=== PATIENT | male | born 1945 | race Caucasian/White ===

== ENCOUNTER 2020-05-28 07:02 | Outpatient (CLI) | payer MEDICARE, OTHER ==
[2020-05-28 12:19] LABS: Anion Gap 15 mmol/L (10-20); BUN (Urea Nitrogen) 24 mg/dL (8.4-25.7); Calc. Creatinine Clearance 0 mL/min (70-130); Calcium 9.6 mg/dL (7.8-10.44); Carbon Dioxide 26 mmol/L (23-31); Chloride 102 mmol/L (98-107); Glucose 104 mg/dL (83-110); Sodium 138 mmol/L (136-145)
[2020-05-28 12:20] LABS: #Eosinphils 0.2 10x3/uL (0.0-0.5); #Monocytes 0.7 10x3/uL (0.0-1.1); #Neutrophils 3.4 10x3/uL (1.5-8.4); %Basophils 0.8 % (0.0-2.0); %Eosinophils 2.9 % (0.0-6.0); %Lymphocytes 17.2 % (18.0-47.0); %Monocytes 13.4 % (0.0-10.0); %Neutrophils 65.1 % (40.0-75.0); Hemoglobin 11.9 g/dL (14.0-18.0); Mean Corpuscular HGB CONC 30.1 G/DL (32.0-36.0); Mean Corpuscular Hemoglobin 25.4 PG (27.0-33.0); Mean Corpuscular Volume 84.2 fl (80.0-100.0); Mean Platelet Volume 11.3 fl (7.4-10.4); Platelet Count 184 10x3/uL (130-400); RBC Distribution Width 22.2 % (11.5-14.5); Red Blood Cell (RBC) Count 4.69 10x6/uL (4.40-5.80); White Blood Cell (WBC) Count 5.2 10x3/uL (4.5-11.0)
[2020-05-28 12:50] LABS: Anisocytosis SLIGHT = 6-15 cells (100X) (0-5/hpf)
[2020-05-28 12:51] LABS: Ovalocytes SLIGHT = 2-5 cells (100X) (0-1/hpf); Platelet Morphology Comment Appears Adequate
[2020-05-28 14:54] LABS: Hemoglobin A1c 5.1 % (4.0-6.0)
[2020-05-28 18:27] LABS: SARS-CoV-2 PCR by NAA Not Detected (NotDetected)
== END 2020-05-28 07:03 | disposition home or self-care (01) ==
LOC: LABBT 07:02
PROVIDERS: ATTEND Specialist
DX: Z01.818 Encounter for other preprocedural examination (principal); Z20.822 Contact with and (suspected) exposure to COVID-19; C18.7 Malignant neoplasm of sigmoid colon; K63.89 Other specified diseases of intestine; R91.8 Other nonspecific abnormal finding of lung field
CPT/HCPCS: 71045; 80048; 83036; 85025; 93005; U0003; U0005; 87635; 93010

== ENCOUNTER 2020-06-02 06:38 | Inpatient (IN) | payer MEDICARE, OTHER ==
[2020-06-02] MEDS ORDERED: Ketorolac Tromethamine 30 MG/ML VIAL ONE (06:54)
[2020-06-02] MEDS ORDERED: cefOXitin Sodium/Dextrose 2 GM/50 ML BAG ONE (06:54)
[2020-06-02] MEDS ORDERED: Acetaminophen 500 MG TAB ONE (06:54)
[2020-06-02] MEDS ORDERED: Fentanyl 100 MCG/2 ML VIAL ONE ×2 (06:54→07:21)
[2020-06-02] MEDS ORDERED: Albuterol Sulfate HFA (OR ONLY) ONE (06:55)
[2020-06-02] MEDS ORDERED: Lidocaine 4% Topical Sol 50 ML BOT ONE (06:55)
[2020-06-02] MEDS ORDERED: Bupivacaine 0.25% HCL 30 ML VIAL ONE (07:00)
[2020-06-02] MEDS ORDERED: EPINEPHrine 1 MG/ML AMP ONE (07:00)
[2020-06-02] MEDS ORDERED: XYLOCAINE 2%-EPI 1:100,000 20 ML VIAL ONE ×2 (07:00→10:18)
[2020-06-02] MEDS ORDERED: Midazolam HCl 2 mg/2 ml Vial ONE (07:21)
[2020-06-02] MEDS ORDERED: Fentanyl 250 MCG/5 ML VIAL ONE (08:59)
[2020-06-02] MEDS ORDERED: Dexamethasone 20 MG/5 ML VIAL ONE (10:47)
[2020-06-02] MEDS ORDERED: ePHEDrine 50 MG/ML VIAL ONE (10:47)
[2020-06-02] MEDS ORDERED: PROPOFOL 200 MG/20 ML VIAL ONE (10:47)
[2020-06-02] MEDS ORDERED: Glycopyrrolate 0.2 MG/ML 5 ML SYRINGE ONE (10:47)
[2020-06-02] MEDS ORDERED: Lidocaine 1% PF 5 ML VIAL ONE (10:47)
[2020-06-02] MEDS ORDERED: Rocuronium Bromide 10 MG/ML (10ML VIAL) ONE (10:47)
[2020-06-02] MEDS ORDERED: Ondansetron PF 4 MG/2 ML Vial ONE (10:47)
[2020-06-02] MEDS ORDERED: Bupivacaine HCl 0.5%/Epinephrine 1:200,000/PF 30 ml Vial ONE (10:47)
[2020-06-02] MEDS ORDERED: ceFOXitin 1 GM VIAL ONE (12:49)
[2020-06-02] MEDS ORDERED: Promethazine HCl 25 MG/ML VIAL IM PRN (16:31)
[2020-06-02] MEDS ORDERED: Morphine 2 MG/ML VIAL SLOW IVP PRN (16:31)
[2020-06-02] MEDS ORDERED: Morphine 4 MG/ML VIAL SLOW IVP PRN (16:31)
[2020-06-02] MEDS ORDERED: hydrALAZINE 20 MG/ML VIAL SLOW IVP PRN (16:31)
[2020-06-02] MEDS ORDERED: Ondansetron PF 4 MG/2 ML Vial IVP PRN (16:31)
[2020-06-02 16:57] VITALS: BMI 29.0
[2020-06-02] MEDS: D5 1/2 NS w/20 mEq KCL 1,000 ML IV SCH ×2 (17:24→23:55)
[2020-06-02] MEDS: Ketorolac Tromethamine 30 MG/ML VIAL IVP SCH ×2 (18:18→23:55)
[2020-06-02] MEDS: Famotidine 20 MG TAB PO SCH (21:03)
[2020-06-02] MEDS: Enoxaparin Sodium 40 MG/0.4 ML SYRINGE SC SCH (21:03)
[2020-06-02] MEDS: Carvedilol 3.125 MG TAB PO SCH (21:03)
[2020-06-02] MEDS: traZODone HCl 50 MG TAB PO SCH (21:03)
[2020-06-02] MEDS: Famotidine/PF 20 mg/2ml Vial SLOW IVP SCH (21:24)
[2020-06-03] MEDS: Ketorolac Tromethamine 30 MG/ML VIAL IVP SCH ×4 (05:15→23:44)
[2020-06-03] MEDS: D5 1/2 NS w/20 mEq KCL 1,000 ML IV SCH ×4 (06:40→23:47)
[2020-06-03 07:25] LABS: Anion Gap 10 mmol/L (10-20); BUN (Urea Nitrogen) 26 mg/dL (8.4-25.7); Calc. Creatinine Clearance 61 mL/min (70-130); Calcium 7.3 mg/dL (7.8-10.44); Carbon Dioxide 23 mmol/L (23-31); Chloride 108 mmol/L (98-107); Glucose 144 mg/dL (83-110); Potassium 4.3 mmol/L (3.5-5.1); Sodium 137 mmol/L (136-145)
[2020-06-03] MEDS ORDERED: Sodium Chloride 0.9% 1,000 ML IV SCH (07:45)
[2020-06-03 07:55] LABS: #Lymphocytes 0.7 thou/uL (1.20-3.40); #Monocytes 0.6 thou/uL (0.11-0.59); #Neutrophils 3.7 thou/uL (1.40-6.50); %Eosinophils 0.1 % (0.0-10.0); %Lymphocytes 14.3 % (21.0-51.0); %Monocytes 11.4 % (0.0-10.0); %Neutrophils 74.3 % (42.0-75.0); Mean Corpuscular HGB CONC 31.6 g/dL (32.0-36.0); Mean Corpuscular Volume 85.6 fL (78.0-98.0); Mean Platelet Volume 10.4 fL (7.4-10.4); Platelet Count 98 thou/uL (130-400); RBC Distribution Width 21.6 % (11.5-14.5); Red Blood Cell (RBC) Count 3.69 mill/uL (4.70-6.10); White Blood Cell (WBC) Count 4.9 thou/uL (4.8-10.8)
[2020-06-03] MEDS: Famotidine 20 MG TAB PO SCH ×2 (08:47→19:57)
[2020-06-03] MEDS: Acyclovir 400 mg Tablet PO SCH (08:48)
[2020-06-03] MEDS: Carvedilol 3.125 MG TAB PO SCH ×2 (08:48→19:57)
[2020-06-03] MEDS: Spironolactone 25 MG TAB PO SCH (08:49)
[2020-06-03] MEDS: Famotidine/PF 20 mg/2ml Vial SLOW IVP SCH ×2 (10:42→19:27)
[2020-06-03] MEDS: Pancrelipase DR 12,000 1 CAP PO SCH (11:44)
[2020-06-03] MEDS ORDERED: HYDROcodone/Acetaminophen 7.5/325 mg Tablet PO PRN ×2 (15:49)
[2020-06-03] MEDS: Enoxaparin Sodium 40 MG/0.4 ML SYRINGE SC SCH (19:26)
[2020-06-03] MEDS: traZODone HCl 50 MG TAB PO SCH (19:57)
[2020-06-04] MEDS: Ketorolac Tromethamine 30 MG/ML VIAL IVP SCH (05:36)
[2020-06-04 06:37] LABS: Anion Gap 10 mmol/L (10-20); BUN (Urea Nitrogen) 15 mg/dL (8.4-25.7); Calc. Creatinine Clearance 70 mL/min (70-130); Calcium 7.6 mg/dL (7.8-10.44); Carbon Dioxide 21 mmol/L (23-31); Chloride 113 mmol/L (98-107); Glucose 131 mg/dL (83-110); Potassium 4.6 mmol/L (3.5-5.1); Sodium 139 mmol/L (136-145)
[2020-06-04 06:57] LABS: Hemoglobin 8.5 g/dL (14.0-18.0); Mean Corpuscular HGB CONC 31.6 g/dL (32.0-36.0); Mean Corpuscular Hemoglobin 27.3 pg (27.0-31.0); Mean Corpuscular Volume 86.6 fL (78.0-98.0); Mean Platelet Volume 9.9 fL (7.4-10.4); Platelet Count 71 thou/uL (130-400); RBC Distribution Width 21.4 % (11.5-14.5); Red Blood Cell (RBC) Count 3.12 mill/uL (4.70-6.10); White Blood Cell (WBC) Count 3.5 thou/uL (4.8-10.8)
[2020-06-04 06:58] LABS: Band 15 % (5-11); Elliptocytes SLIGHT = 2-5 cells (100X) (0-1/hpf); Eosinophils 3 % (0-10); Lymphocytes 13 % (21-51); MDiff Complete? YES; Monocytes 7 % (0-10); Neutrophil 62 % (42-75); Platelet Morphology Comment Appears Decreased
[2020-06-04] MEDS: Famotidine 20 MG TAB PO SCH ×2 (09:18→20:32)
[2020-06-04] MEDS: Spironolactone 25 MG TAB PO SCH (09:19)
[2020-06-04] MEDS: Pancrelipase DR 12,000 1 CAP PO SCH (09:19)
[2020-06-04] MEDS: Carvedilol 3.125 MG TAB PO SCH ×2 (09:19→20:32)
[2020-06-04] MEDS: Acyclovir 400 mg Tablet PO SCH (09:19)
[2020-06-04] MEDS: D5 1/2 NS w/20 mEq KCL 1,000 ML IV SCH ×2 (09:19→23:32)
[2020-06-04] MEDS: Famotidine/PF 20 mg/2ml Vial SLOW IVP SCH ×2 (09:21→21:04)
[2020-06-04] MEDS: traZODone HCl 50 MG TAB PO SCH (20:32)
[2020-06-05 06:19] LABS: #Eosinphils 0.1 thou/uL (0.0-0.7); #Lymphocytes 0.7 thou/uL (1.20-3.40); #Monocytes 0.4 thou/uL (0.11-0.59); #Neutrophils 2.4 thou/uL (1.40-6.50); %Eosinophils 3.9 % (0.0-10.0); %Lymphocytes 17.7 % (21.0-51.0); %Monocytes 11.9 % (0.0-10.0); %Neutrophils 65.5 % (42.0-75.0); Hemoglobin 8.3 g/dL (14.0-18.0); Mean Corpuscular HGB CONC 31.2 g/dL (32.0-36.0); Mean Corpuscular Volume 86.5 fL (78.0-98.0); Mean Platelet Volume 10.1 fL (7.4-10.4); Platelet Count 75 thou/uL (130-400); RBC Distribution Width 21.2 % (11.5-14.5); Red Blood Cell (RBC) Count 3.07 mill/uL (4.70-6.10); White Blood Cell (WBC) Count 3.7 thou/uL (4.8-10.8)
[2020-06-05 06:41] LABS: Anion Gap 9 mmol/L (10-20); BUN (Urea Nitrogen) 9 mg/dL (8.4-25.7); Calc. Creatinine Clearance 88 mL/min (70-130); Calcium 7.5 mg/dL (7.8-10.44); Carbon Dioxide 21 mmol/L (23-31); Chloride 113 mmol/L (98-107); Glucose 115 mg/dL (83-110); Sodium 139 mmol/L (136-145)
[2020-06-05 07:49] VITALS: BP 147/79; TEMP 98
[2020-06-05] MEDS: Famotidine/PF 20 mg/2ml Vial SLOW IVP SCH (09:27)
[2020-06-05] MEDS: Carvedilol 3.125 MG TAB PO SCH (09:28)
[2020-06-05] MEDS: Famotidine 20 MG TAB PO SCH (09:28)
[2020-06-05] MEDS: Spironolactone 25 MG TAB PO SCH (09:28)
[2020-06-05] MEDS: Acyclovir 400 mg Tablet PO SCH (09:28)
== END 2020-06-05 16:00 | disposition home or self-care (01) | DRG 330 ==
LOC: SDC 06:38 → SURG B 15:46 → SDC 16:31 → SURG B 06-05 11:20 → SDC 06-05 11:20
PROVIDERS: ADMIT Specialist; ATTEND Specialist
PROC: 0DBN0ZZ Excision of Sigmoid Colon, Open Approach (ICD-10-PCS; principal; 2020-06-02)
PROC: 0DBM0ZZ Excision of Descending Colon, Open Approach (ICD-10-PCS; 2020-06-02)
PROC: 0DBA0ZZ Excision of Jejunum, Open Approach (ICD-10-PCS; 2020-06-02)
PROC: 0DNW0ZZ Release Peritoneum, Open Approach (ICD-10-PCS; 2020-06-02)
DX: C18.7 Malignant neoplasm of sigmoid colon (principal); Z94.81 Bone marrow transplant status; Z20.822 Contact with and (suspected) exposure to COVID-19; D64.9 Anemia, unspecified; I10 Essential (primary) hypertension; K66.0 Peritoneal adhesions (postprocedural) (postinfection); K63.89 Other specified diseases of intestine; Z79.01 Long term (current) use of anticoagulants; Z79.899 Other long term (current) drug therapy; Z88.2 Allergy status to sulfonamides; Z88.8 Allergy status to other drugs, medicaments and biological substances; Z85.46 Personal history of malignant neoplasm of prostate; Z86.718 Personal history of other venous thrombosis and embolism; Z98.890 Other specified postprocedural states; Z85.79 Personal history of other malignant neoplasms of lymphoid, hematopoietic and related tissues; Z88.1 Allergy status to other antibiotic agents
CPT/HCPCS: 36415; 80048; 85025; 88305; 88307; 88309; 88313; 88331; 88341; 88342; J0171; J0694; J1100; J1650; J1885; J2250; J2405; J2704; J3010; J3480; J3490; S0020

== ENCOUNTER 2020-08-10 16:43 | Outpatient (CLI) | payer MEDICARE, OTHER ==
[2020-08-11 02:12] LABS: SARS-CoV-2 PCR by NAA Not Detected (NotDetected)
== END 2020-08-10 16:44 | disposition home or self-care (01) ==
LOC: LABBT 16:43
PROVIDERS: ATTEND Specialist
DX: Z01.818 Encounter for other preprocedural examination (principal); C18.7 Malignant neoplasm of sigmoid colon; K63.89 Other specified diseases of intestine; J98.4 Other disorders of lung; Z98.890 Other specified postprocedural states; Z20.822 Contact with and (suspected) exposure to COVID-19
CPT/HCPCS: 71046; U0003; U0005; 87635

== ENCOUNTER 2020-08-13 11:03 | Day surgery (SDC) | payer MEDICARE, OTHER ==
[2020-08-12 14:20] VITALS: BMI 29.0
[2020-08-13] MEDS ORDERED: Acetaminophen 500 MG TAB ONE (12:01)
[2020-08-13] MEDS ORDERED: Ketorolac Tromethamine 30 MG/ML VIAL ONE (12:36)
[2020-08-13] MEDS ORDERED: Lidocaine 1% (PF) 30 ML VIAL ONE (15:09)
[2020-08-13] MEDS ORDERED: Bupivacaine 0.25% HCL 30 ML VIAL ONE (15:09)
[2020-08-13] MEDS ORDERED: Fentanyl 100 MCG/2 ML VIAL ONE (15:13)
[2020-08-13] MEDS ORDERED: Propofol 500 MG/50 ML VIAL ONE (15:13)
[2020-08-13] MEDS ORDERED: Midazolam HCl 2 mg/2 ml Vial ONE (15:13)
[2020-08-13] MEDS ORDERED: PROPOFOL 200 MG/20 ML VIAL ONE (15:25)
[2020-08-13] MEDS ORDERED: Lidocaine 1% w/Epinephrine 1:100K 20 ML VIAL ONE (15:29)
== END 2020-08-13 17:14 | disposition home or self-care (01) ==
LOC: SDC 11:03
PROVIDERS: ATTEND Specialist
PROC: 02HV33Z Insertion of Infusion Device into Superior Vena Cava, Percutaneous Approach (ICD-10-PCS; principal; 2020-08-13)
DX: C18.7 Malignant neoplasm of sigmoid colon (principal); K86.1 Other chronic pancreatitis; I10 Essential (primary) hypertension; Z79.899 Other long term (current) drug therapy; Z88.2 Allergy status to sulfonamides; Z88.8 Allergy status to other drugs, medicaments and biological substances
CPT/HCPCS: 36561; 71045; C1788; J0690; J1642; J1885; J2001; J2250; J2704; J3010; S0020

== ENCOUNTER 2022-06-28 12:20 | Outpatient (CLI) | payer MEDICARE, OTHER | END 2022-06-28 12:21 | disposition home or self-care (01) | LOC: PET 12:20 | PROVIDERS: ATTEND Internal Medicine Hematology & Oncology | DX: C18.7 Malignant neoplasm of sigmoid colon (principal); C90.01 Multiple myeloma in remission | CPT/HCPCS: 78815; A9552 ==

== ENCOUNTER 2023-06-12 16:00 | Outpatient (CLI) | payer MEDICARE, OTHER | END 2023-06-12 16:01 | disposition home or self-care (01) | LOC: SLEEPLAB 16:00 | PROVIDERS: ATTEND Internal Medicine Critical Care Medicine | DX: G47.33 Obstructive sleep apnea (adult) (pediatric) (principal); R06.83 Snoring; I10 Essential (primary) hypertension; I48.91 Unspecified atrial fibrillation; G47.00 Insomnia, unspecified | CPT/HCPCS: 95800 ==